=== PATIENT | female | born 1995 | race Caucasian/White ===

== ENCOUNTER 2018-12-28 18:34 | Emergency (ER) | payer BC ==
[~2018-12-28] VITALS: Ht 152.4 cm; Wt 67.9 kg
[2018-12-28 18:35] VITALS: BP 122/65
[2018-12-28] MEDS ORDERED: AZO1CAP PO (18:39)
[2018-12-28] MEDS ORDERED: NEXP1IMP SC (18:41)
[2018-12-28 19:08] LABS: GLUCOSE, URINE (UA) MANUAL NEGATIVE (NEGATIVE); KETONE, URINE MANUAL OBSCURED mg/dL (NEGATIVE)
[2018-12-28 19:09] LABS: BILIRUBIN, URINE MANUAL OBSCURED (NEGATIVE); UROBILINOGEN, URINE MANUAL OBSCURED mg/dl (NORMAL)
[2018-12-28] MEDS ORDERED: MACR100C43 PO (19:17)
[2018-12-28] MEDS ORDERED: PHEN-501 PO (19:17)
[2018-12-28 19:20] LABS: SQUAMOUS EPITHELIAL CELL URINE MOD AMOUNT /hpf (SMALL AMT)
[2018-12-28 19:21] LABS: BACTERIA, URINE MOD AMOUNT; HYALINE CAST, URINE NONE SEEN /lpf (0-1)
[2018-12-28] MEDS ORDERED: PHENAZOPYRIDINE 100 MG TAB PO ONE (19:30)
[2018-12-28] MEDS ORDERED: NITROFURANTOIN (MACROBID) 100 MG CAP PO ONE (19:30)
== END 2018-12-28 19:33 | disposition home or self-care (01) ==
LOC: M ED 18:34
DX: N39.0 Urinary tract infection, site not specified (principal); Z87.440 Personal history of urinary (tract) infections; Z79.899 Other long term (current) drug therapy; Z91.010 Allergy to peanuts